=== PATIENT | male | born 1980 | race Caucasian/White ===

== ENCOUNTER 2022-03-11 21:23 | Emergency (ER) | payer OTHER ==
[~2022-03-11] VITALS: Ht 165.1 cm; Wt 79.4 kg
--- NOTE | 2022-03-11 21:25 | NUR ---
JOVANNA JEROME TO CHAIR B
[2022-03-11 21:37] VITALS: BP 154/88
--- NOTE | 2022-03-11 22:47 | NUR ---
PATIENT BIB [facility] POLICE DEPT. PATIENT EXAMINED BY . PATIENT MEDICALLY CLEARED AND RELEASED IN CUSTODY IN STABLE CONDITION. ORIGINAL PRE-BOOK FORM GIVEN TO OFFICER FATIMAH, #[id number].
== END 2022-03-11 22:47 ==
LOC: MED 21:23
DX: M79.10 Myalgia, unspecified site (principal); V89.2XXA Person injured in unspecified motor-vehicle accident, traffic, initial encounter; Y93.89 Activity, other specified; Y92.488 Other paved roadways as the place of occurrence of the external cause; Y99.8 Other external cause status
CPT/HCPCS: 73010; 99283